=== PATIENT | male | born 1935 | race Caucasian/White ===

== ENCOUNTER → 2016-09-11 | Outpatient (CLI) | payer MEDICARE ==
[~2016-09-11] MED LIST: CHEWABLE ASPIRI81 MG PO; CRESTOR10 MG PO; GLUCOSAMINE & C1 CA1 PO; LISINOPRIL5 MG PO; LORTAB 500 MG-11 TAB PO; MULTI-DAY1 TAB PO; MULTIVITAMINS1 TA1 PO; NEXIUM40 MG PO; NITROQUICK0.4 MG SL; SIMVASTATIN10 MG PO; TYLENOL ES500 M1 PO; TYLENOL PM 5001 CAP PO; ZETIA10 MG PO
[2016-09-11 09:04] LABS: HEMOGLOBIN 13.3 g/dL (14.1-18.0); LYMPH # 57.2 K/mm3 (0.7-4.5); LYMPH % 92.2 % (10-50)
[2016-09-11 10:00] LABS: BUN 14 mg/dL (7-18)
[2016-09-11 10:01] LABS: GFR (ESTIMATED) 93 ML/MIN (>60)
[2016-09-11 10:51] LABS: NEUTROPHILS 2 % (42-76)
== END ==
LOC: LAB 08:23
PROVIDERS: Internal Medicine
DX: C91.10 Chronic lymphocytic leukemia of B-cell type not having achieved remission (principal)

== ENCOUNTER → 2016-11-06 | Outpatient (CLI) | payer MEDICARE ==
[2016-11-06 09:32] LABS: HEMOGLOBIN 12.8 g/dL (14.1-18.0); LYMPH # 58.5 K/mm3 (0.7-4.5); LYMPH % 89.5 % (10-50)
[2016-11-06 12:02] LABS: NEUTROPHILS 4 % (42-76)
== END ==
LOC: LAB 08:14
PROVIDERS: Nurse Practitioner
DX: C91.10 Chronic lymphocytic leukemia of B-cell type not having achieved remission (principal)

== ENCOUNTER → 2017-02-13 | Outpatient (CLI) | payer MEDICARE ==
[~2017-02-13] MED LIST changes: +LOSARTAN POTASS50 MG PO; +PEPCID20 MG PO; +PREDNISONE 10MG10 MG PO; +PREDNISONE 20MG20 MG PO; +PREDNISONE20 MG PO; +RITUXAN100 MG/10 IV; +SIMVASTATIN20 MG PO
--- NOTE | 2017-02-14 14:01 | RADIOLOGY REPORT PS360 ---
History and Indications: Coronary artery disease, history of GA, hypertension, hyperlipidemia and chest pain Procedure: Patient received a 0.4 mg of Lexiscan, resting heart rate was 58 bpm, resting blood pressure 121/67, with Lexiscan maximum heart rate achieved was 85 bpm which is less than 85% of the maximum predicted heart rate and a blood pressure was 121/64. With Lexiscan no symptoms recorded. Electrocardiogram: Resting electrocardiogram showed sinus bradycardia, with Lexiscan occasional premature atrial complex seen, there is less than 1.[address] segment depression noted from the baseline EKG. The EKG portion of the Lexiscan Myoview is nondiagnostic. Cardiac stress and resting SPECT images: Cardiac stress and rest SPECT images were obtained using technetium 99 Myoview 10.9 mCi at rest and 32.0 mCi at stress, gated SPECT further analysis of segmental wall motion and calculation of the ejection fraction also done. Cardiac stress and rest images show decreased tracer activity in the inferior wall which partially improves on the resting images is suggestive of ischemia next with a scar, computer derived ejection fraction is 52% with inferior wall moderate hypokinesis. Right ventricle is normal size and contractility. Conclusion: 1. The EKG portion of the Lexiscan is nondiagnostic. 2. Scintigraphic evidence of mixed ischemia and scar involving the inferior wall as described above. Computer derived ejection fraction is 52% with segmental wall motion abnormalities as described above. Right ventricle is normal size and contractility. 3. Abnormal Lexiscan Myoview study.
== END ==
LOC: RAD 06:20
DX: R07.9 Chest pain, unspecified (principal)
CPT/HCPCS: A9502; J2785

== ENCOUNTER 2017-05-02 08:28 | Outpatient (CLI) | payer MEDICARE ==
[~2017-05-02] VITALS: Ht 175.3 cm; Wt 82.6 kg
[2017-05-02] VITALS (12 sets, daily range): BP systolic 105–131; BP diastolic 55–73
[2017-05-02 09:01] LABS: HEMOGLOBIN 13.1 g/dL (14.1-18.0); LYMPH # 0.8 K/mm3 (0.7-4.5); LYMPH % 24.5 % (10-50)
== END 2017-05-02 13:05 | disposition home or self-care (01) ==
LOC: COP 08:28
PROVIDERS: Internal Medicine
DX: C91.10 Chronic lymphocytic leukemia of B-cell type not having achieved remission (principal); Z51.11 Encounter for antineoplastic chemotherapy
CPT/HCPCS: J9310